=== PATIENT | female | born 1970 | race Caucasian/White ===

== ENCOUNTER 2018-04-10 23:28 | Emergency (ER) | END 2018-04-11 04:10 | disposition home or self-care (01) ==

== ENCOUNTER 2018-04-11 06:39 | Emergency (ER) | END 2018-04-11 07:51 | disposition home or self-care (01) ==

== ENCOUNTER 2018-04-13 15:38 | Emergency (ER) | END 2018-04-13 16:53 | disposition home or self-care (01) ==

== ENCOUNTER 2019-01-22 20:11 | Emergency (ER) | payer MEDICAID, OTHER ==
[~2019-01-22] VITALS: Wt 51.0 kg
[~2019-01-22 20:11] MED LIST: CEPH-443 PO; IBUP-1542 PO; SULF1TAB31 PO
[2019-01-22] MEDS ORDERED: LIDOCAINE 1% (MPF) 5 ML VIAL INJ ONE (22:30)
[2019-01-22] MEDS ORDERED: LIDOCAINE 1% (MDV) 20 ML INJ SC ONE (23:00)
--- NOTE | 2019-01-22 23:00 | ERD ---
ER Documentation Chief Complaint Chief Complaint L SIDE VAGINAL ABSCESS FOR THE PAST FEW DAYS. NO DRAINAGE. OR FEVERS HPI 48-year-old female with no past medical or surgical history who presents with left-sided thigh/inguinal pain. Believe she has another abscess in the inguinal area on the left side. Previously had abscess which required drainage last year March. She otherwise denies fevers, chills, nausea vomiting, abdominal pain, urinary symptoms. Reports all vaccinations up-to-date allergy to Tylenol medication. ROS All systems reviewed and are negative except as per history of present illness. Medications Home Meds Active Scripts Ibuprofen* (Motrin*) 600 Mg Tab, 600 MG PO Q6H PRN for PAIN AND OR ELEVATED TEMP, #30 TAB Prov:JEUDINE,GETHO PA-C 01/22/19 Cephalexin* (Keflex*) 500 Mg Capsule, 500 MG PO QID for 10 Days, CAP Prov:JEUDINE,GETHO PA-C 01/22/19 Sulfamethoxazole/Trimethoprim* (Bactrim Ds* Tablet) 1 Each Tablet, 1 TAB PO BID, #7 TAB Prov:JEUDINE,GETHO PA-C 01/22/19 Ibuprofen* (Motrin*) 600 Mg Tab, 600 MG PO Q6, #30 TAB Prov:KATHERINE,JP 04/11/18 Sulfamethoxazole/Trimethoprim* (Bactrim Ds* Tablet) 1 Each Tablet, 1 TAB PO BID for 7 Days, #14 TAB Prov:KATHERINE,JP 04/11/18 Cephalexin* (Keflex*) 500 Mg Capsule, 500 MG PO QID for 10 Days, #40 CAP Prov:KATHERINE,JP 04/11/18 Allergies Allergies: Coded Allergies: acetaminophen (Verified Allergy, Intermediate, rash, 04/13/18) PMhx/Soc Medical and Surgical Hx: pt denies Medical Hx History of Surgery: Yes (HYSTERECTOMY) Anesthesia Reaction: No Hx Neurological Disorder: No Hx Respiratory Disorders: No Hx Psychiatric Problems: No Hx Miscellaneous Medical Probl: No Hx Alcohol Use: No Hx Substance Use: No Hx Tobacco Use: No FmHx Family History: No diabetes, No coronary disease, No other Physical Exam Vitals Vital Signs Date Temp Pulse Resp B/P (MAP) Pulse Ox O2 O2 Flow FiO2 Time Delivery Rate 01/22/19 99.3 78 18 120/56 98 20:19 (77) Physical Exam I have reviewed the triage vital signs. Const: Well nourished, well developed, appears stated age Eyes: PERRL, no conjunctival injection HENT: NCAT, Neck supple without meningismus CV: RRR, Warm, well-perfused extremities RESP: CTAB, Unlabored respiratory effort GI: soft, non-tender, non-distended, no masses MSK: No gross deformities appreciated Skin: area of tenderness, fluctuance, L inner thigh/inguinal area, open with scant drainage Neuro: grossly non focal Psych: Appropriate mood and affect. Results 24 hrs Current Medications Medications Dose Sig/Bud Start Time Status Last (Trade) Ordered Route PRN Stop Time Admin Dose Reason Admin Lidocaine 10 ml ONCE ONCE 01/22/19 DC (Xylocaine INJ 22:30 1% (Mpf)) 01/22/19 22:32 Lidocaine 10 ml ONCE ONCE 01/22/19 DC (Xylocaine SC 23:00 1% (Mdv) 20 01/22/19 23:01 ml) Procedures/MDM Abscess Incision and Drainage with irrigation by me: Location: L thigh/inguinal region Anesthesia: Local 1% Lidocaine Technique: Irrigated. Disrupted loculations w/ instrumentation Packing: None Complications: Neurovascularly intact post procedure 48 hour wound check. Scar minimization instructions given. DISPOSITION PLAN: We discussed follow up with the patient's primary care doctor within 24 to 48 hours. Patient counseled regarding my diagnostic impression and care plan. Prior to discharge all questions answered. Pt agrees with treatment plan and understands strict return precautions. Precautionary instructions provided including instructions to return to the ER if not improving or for any worsening or changing symptoms or concerns. Departure Diagnosis: Primary Impression: Abscess Condition: Stable FILIPE WHATLEY PA-C Jan 22, 2019 23:00
[2019-01-22] MEDS ORDERED: CEPH-443 PO (23:03)
[2019-01-22] MEDS ORDERED: SULF1TAB31 PO (23:03)
[2019-01-22] MEDS ORDERED: IBUP-1542 PO (23:03)
== END 2019-01-23 00:12 | disposition home or self-care (01) ==
LOC: FTE 20:11
DX: L02.214 Cutaneous abscess of groin (principal)
CPT/HCPCS: 10060; Z7502; Z7610